=== PATIENT | male | born 1960 | race Caucasian/White ===

== ENCOUNTER 2017-02-24 13:59 | Outpatient (CLI) | payer OTHER ==
[2015-06-21 23:29] VITALS: BP 116/83
[2017-02-25 02:40] LABS: OPIATES Negative ng/mL (<300); THC Negative ng/mL (<50)
== END 2017-02-24 14:00 ==
LOC: LAB 13:59
PROVIDERS: ATTEND Internal Medicine Gastroenterology
DX: B19.20 Unspecified viral hepatitis C without hepatic coma (principal)
CPT/HCPCS: 36415; 87900; 87902

== ENCOUNTER 2017-03-20 07:51 | Outpatient (CLI) | payer OTHER ==
[2015-06-21 23:29] VITALS: BP 116/83
[2017-03-20 18:41] LABS: OPIATES Negative ng/mL (<300); THC Negative ng/mL (<50)
== END 2017-03-20 09:33 ==
LOC: LAB 07:51
PROVIDERS: ATTEND Nurse Practitioner Family
DX: B19.20 Unspecified viral hepatitis C without hepatic coma (principal)
CPT/HCPCS: 80307; G0477

== ENCOUNTER 2017-04-20 14:16 | Outpatient (CLI) | payer OTHER ==
[2015-06-21 23:29] VITALS: BP 116/83
--- NOTE | 2017-04-20 14:52 | Diagnostic Imaging Report ---
CRISTIAN MCNULTY (GRILL ATTENDANT) - OP [facility] [id number] [address] Report Submission Date: Apr 20, 2017 2:51:13 PM CDT Patient Study Name: RITU HAWK Date: Apr 20, 2017 2:32:02 PM CDT Modality Type: CR Gender: M Description: SHOULDER : 60 Institution: [facility] Physician: CRISTIAN MCNULTY (GRILL ATTENDANT) - OP Examination: Plain film shoulder History: Shoulder discomfort Comparison exams: None provided Findings: 3 views of the shoulder demonstrate normal cortical margins. No evidence for fracture or dislocation. Acromioclavicular degenerative changes. No soft tissue abnormality Impression: Acromioclavicular degenerative changes. No acute fracture Electronically signed on Apr 20, 2017 2:51:13 PM CDT by: Kike [email or web address]
== END 2017-04-20 14:17 ==
LOC: RAD 14:16
PROVIDERS: ATTEND Nurse Practitioner Family
DX: M25.511 Pain in right shoulder (principal)
CPT/HCPCS: 73030

== ENCOUNTER 2017-04-24 16:04 | Outpatient (CLI) | payer OTHER ==
[2015-06-21 23:29] VITALS: BP 116/83
== END 2017-04-24 16:05 ==
LOC: LAB 16:04
PROVIDERS: ATTEND Internal Medicine Gastroenterology
DX: B18.2 Chronic viral hepatitis C (principal)
CPT/HCPCS: 36415; 87900; 87902

== ENCOUNTER 2017-06-24 11:40 | Outpatient (CLI) | payer OTHER ==
[2015-06-21 23:29] VITALS: BP 116/83
== END 2017-06-24 11:42 ==
LOC: LAB 11:40
PROVIDERS: ATTEND Internal Medicine Gastroenterology
DX: B19.20 Unspecified viral hepatitis C without hepatic coma (principal)
CPT/HCPCS: 36415; 87522

== ENCOUNTER 2017-08-12 09:17 | Outpatient (CLI) | payer OTHER ==
[2015-06-21 23:29] VITALS: BP 116/83
== END 2017-08-12 09:20 ==
LOC: LAB 09:17
PROVIDERS: ATTEND Internal Medicine Gastroenterology
DX: B19.20 Unspecified viral hepatitis C without hepatic coma (principal)
CPT/HCPCS: 36415; 87522